=== PATIENT | female | born 1970 | race Caucasian/White ===

== ENCOUNTER 2021-09-17 19:29 | Emergency (ER) | payer SELFPAY ==
[~2021-09-17] VITALS: Ht 162.6 cm; Wt 80.0 kg
--- NOTE | 2021-09-17 19:46 | PHYS DOC ---
General Adult HPI: HPI: Patient is a 50 year old female presents with a chief complaint of chest discomfort. Patient's chest discomfort is midsternal started yesterday approximately 1500 hrs. and lasted until approximately 1800 hrs. At that time patient states pain did not radiate she did rated the pain a 10 out of 10 and described as a dull type of pain. She denied any associated nausea vomiting or diaphoresis. Patient did states she has some associated shortness of breath. Again patient states pain resolved yesterday at 1800 hrs. Patient's pain returned today. Patient states today pain is substernal comes and goes and described as a burning and throbbing sensation. Again she denies any associated nausea vomiting or diaphoresis but does states she has some shortness of breath. Patient also complains of pain in her right ankle. Patient has had previous surgeries right ankle related to an injury. Patient states her right lower extremity feels numb and swollen. Patient is currently on antibiotics was seen 2 to 3 days ago at outside facility for the chief complaint of foul-smelling urine. On exam patient is alert and oriented x4. She appears in no acute distress her vital signs are stable. EKG performed shows no acute ischemic changes Review of Systems: Review of Systems: Review of systems: Constitutional symptoms- No fever, no chills. Eyes- No Discharge, No Visual Loss Respiratory symptoms- No shortness of breath, No wheezing, No Dyspnea on Exertion Cardiovascular Systems; No chest pain, No Palpitations, No syncope Gastrointestinal symptoms: NO abdominal pain, no nausea, no vomiting or diarrhea. Genitourinary symptoms: No dysuria. Musculoskeletal symptoms: No back pain No extremity pain. NEUROLOGICAL Symptoms: No headache, no generalized weakness; No focal Weakness Skin: No rash. Heart Score: C/O Chest Pain: Yes HEART Score for Chest Pain: HEART Score for Chest Pain Response (Comments) Value History Slighlty/Non-Suspicious 0 ECG Normal 0 Age >45 - < 65 1 Risk Factors No Risk Factors 0 Troponin < Normal Limit 0 Total 1 Risk Factors: Risk Factors: DM, Current or recent (<one month) smoker, HTN, HLP, family history of CAD, obesity. Risk Scores: Score 0 - 3: 2.5% MACE over next 6 weeks - Discharge Home Score 4 - 6: 20.3% MACE over next 6 weeks - Admit for Clinical Observation Score 7 - 10: 72.7% MACE over next 6 weeks - Early Invasive Strategies Physical Exam: PE: General: alert, no acute distress. Skin: warm, dry and intact, no erythema, no rash. HENT: bilateral external ears normal, oropharynx moist, nose normal. Head:: Normocephalic, atraumatic. Neck: Trachea midline. Eyes: EOMI, Normal conjunctiva, No drainage CARDIOVASCULAR: Regular rate and rhythm RESPIRATORY: No respiratory distress Back: Full range of motion. MUSCULOSKELETAL: Full range of motion of bilateral upper and lower extremities. GASTROINTESTINAL: Abdomen soft without rebound or guarding. NEUROLOGICAL: Alert and noted to person, place and time. No neurological deficits observed Psychiatric: Cooperative. Normal judgment EKG: EKG: [] Performed at 1939 Rate 98 Normal sinus rhythm No ST elevation No ST depression No acute UT Radiology/Procedures: Radiology/Procedures: [] Impression: MPRESSION: Left greater than right bibasilar opacities. Course & Med Decision Making: Course & Med Decision Making Pertinent Labs and Imaging studies reviewed. (See chart for details) [] Patient was evaluated for chief complaint. Work-up consisted of laboratory analysis Joy Disclaimer: Joy Disclaimer: This electronic medical record was generated, in whole or in part, using a voice recognition dictation system. Departure Departure Impression: Primary Impression: Pneumonia Additional Impression: Hypokalemia Disposition: 01 HOME / SELF CARE / HOMELESS Condition: STABLE Patient Instructions: Hypokalemia, Pneumonia, Adult Scripts Potassium Chloride (POTASSIUM CHLORIDE ) 20 Meq Tablet.er 20 MEQ PO DAILY for SUPPLEMENT, #10 TAB.SR Prov: MEHNAZ MARCIAL DO 09/17/21 Azithromycin (ZITHROMAX) 250 Mg Tablet 1 PKG PO UD, #6 TAB Prov: MEHNAZ MARCIAL DO 09/17/21 MEHNAZ MARCIAL DO Sep 17, 2021 19:45
[2021-09-17 20:16] LABS: BASO # 0.1 x10^3/uL (0.0-0.2); BASO % 1 % (0-3); EOS # 0.3 x10^3/uL (0.0-0.7); EOS % 3 % (0-3); HEMATOCRIT 42.8 % (36.0-47.0); HEMOGLOBIN 14.5 g/dL (12.0-15.5); LYMPH # 2.4 x10^3/uL (1.0-4.8); LYMPH % 23 % (24-48); MEAN CORPUSCULAR HEMOGLOBIN 32 pg (25-35); MEAN CORPUSCULAR HGB CONC 34 g/dL (31-37); MEAN CORPUSCULAR VOLUME 93 fL (79-100); MONO # 0.8 x10^3/uL (0.0-1.1); MONO % 7 % (0-9); NEUT # 7.1 x10^3/uL (1.8-7.7); NEUT % 67 % (31-73); PLATELET COUNT 373 x10^3/uL (140-400); RED BLOOD COUNT 4.58 x10^6/uL (3.50-5.40); RED CELL DISTRIBUTION WIDTH 13.8 % (11.5-14.5); WHITE BLOOD COUNT 10.7 x10^3/uL (4.0-11.0)
--- NOTE | 2021-09-17 20:25 | RAD ---
EXAMINATION: XR CHEST 1V CLINICAL HISTORY: Chest pain EXAM DATE/TIME: 09/17/2021 8:07 PM COMPARISON: None FINDINGS: Lines, Tubes, and Devices: None. Cardiomediastinal Silhouette: Within normal limits. Lungs and Pleura: Mild opacities in the lateral lung bases, greater on the left. No evidence of pleur al effusion or pneumothorax. Bones and Soft Tissues: Degenerative changes in the thoracic spine. IMPRESSION: Left greater than right bibasilar opacities. Electronically signed by: Abel Hanna DO (09/17/2021 8:23 PM) [id number]
[2021-09-17 20:28] LABS: CALCIUM 9.1 mg/dL (8.5-10.1); CREATININE 0.9 mg/dL (0.6-1.0)
[2021-09-17 20:35] LABS: TOTAL BILIRUBIN 0.4 mg/dL (0.2-1.0); TOTAL PROTEIN 7.9 g/dL (6.4-8.2)
[2021-09-17] MEDS ORDERED: cefTRIAXone IM 1 GM VIAL IM ONE (21:00)
[2021-09-17] MEDS ORDERED: POTASSIUM CHLORIDE 20 MEQ TABLET.ER. PO ONE (21:00)
[2021-09-17] MEDS ORDERED: AZITHROMYCIN 250 MG TABLET. PO ONE (21:00)
[2021-09-17] MEDS ORDERED: AZIT250T PO (21:01)
[2021-09-17] MEDS ORDERED: POTA20TA4 PO (21:02)
[2021-09-17 21:32] VITALS: BP 174/108
--- NOTE | 2021-09-17 22:23 | EKG ---
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
== END 2021-09-17 21:26 | disposition home or self-care (01) ==
LOC: ER 19:29
DX: J18.9 Pneumonia, unspecified organism (principal); E87.6 Hypokalemia; M25.571 Pain in right ankle and joints of right foot
CPT/HCPCS: 36415; 71045; 80053; 84484; 85025; 85379; 93005; 96372; 99285; J0696

== ENCOUNTER 2021-09-21 12:05 | Emergency (ER) | payer SELFPAY ==
[~2021-09-21] VITALS: Ht 162.6 cm; Wt 84.2 kg
[~2021-09-21 12:05] MED LIST: AZIT250T PO; POTA20TA4 PO
[2021-09-21] MEDS ORDERED: IV NORMAL SALINE 1000ML BAG 1,000 ML IV SCH (13:15)
--- NOTE | 2021-09-21 13:28 | RAD ---
XR CHEST 1V 09/21/2021 1:22 PM INDICATION: Chest pain, history of pneumonia COMPARISON: 09/17/2021 TECHNIQUE: Portable frontal view of the chest is provided. FINDINGS: The cardiomediastinal silhouette is within normal limits. Improved aeration of the lung bases. Lungs are otherwise clear. There are no significant pleural effusions. There is no pulmonary vascular congestion. No pneumothora x. No suspicious osseous abnormality. IMPRESSION: There is no acute cardiopulmonary process. Electronically signed by: Rosie Pandya MD (09/21/2021 1:25 PM) [id number]
[2021-09-21] MEDS ORDERED: fentaNYL PF VIAL 100 MCG/2 ML VIAL IVP ONE (13:30)
[2021-09-21 13:33] LABS: BILIRUBIN,URINE NEGATIVE (NEG); CLARITY,URINE CLEAR; COLOR,URINE YELLOW; NITRITE,URINE NEGATIVE (NEG); PH,URINE 5.5 (<5.0-8.0); PROTEIN,URINE NEGATIVE (NEG-TRACE); UROBILINOGEN,URINE 0.2 mg/dL (0.2 mg/dL)
[2021-09-21 13:39] LABS: BACTERIA,URINE MANY /HPF (0-FEW); RBC,URINE 0 /HPF (0-2)
--- NOTE | 2021-09-21 13:43 | PHYS DOC ---
Past Medical History Past Surgical History: Hysterectomy, Other Additional Past Surgical Histo: RIGHT ANKLE, RIGHT JAW Smoking Status: Never Smoker Alcohol Use: Occasionally General Adult EDM: Chief Complaint: DIZZY/LIGHT HEADED HPI: HPI: Patient is a 50 year old female who presents with was here 4 days ago and diagnosed with pneumonia and hypokalemia. She was sent home on azithromycin and potassium. She states since then she is weak and fatigued and has not been getting out of bed and when she went to get up today she is very dizzy. She states she has been taking her medications as prescribed. She states she still having numbness and tingling in her hands and feet. She states that she has been taking antibiotic but she is still having chest pain with breathing and intermittent shortness of breath. Patient rates her pain at a 6 out of 10. Patient has a history of hysterectomy, right ankle surgery and right jaw surgery. Review of Systems: Review of Systems: Constitutional: Denies fever or chills. [] Eyes: Denies change in visual acuity. [] HENT: Denies nasal congestion or sore throat. [] Respiratory: +cough or +shortness of breath. [] Cardiovascular: + chest pain or denies edema. [] GI: Denies abdominal pain, nausea, vomiting, bloody stools or diarrhea. [] : Denies dysuria. [] Musculoskeletal: Denies back pain or joint pain. + Generalized fatigue [] Integument: Denies rash. [] Neurologic: Denies headache, focal weakness or sensory changes. + Dizziness [] Endocrine: Denies polyuria or polydipsia. [] Lymphatic: Denies swollen glands. [] Psychiatric: Denies depression or anxiety. [] Heart Score: C/O Chest Pain: Yes HEART Score for Chest Pain: HEART Score for Chest Pain Response (Comments) Value History Slighlty/Non-Suspicious 0 ECG Nonspecific Repolarizatio 1 Age >45 - < 65 1 Risk Factors No Risk Factors 0 Troponin < Normal Limit 0 Total 2 Risk Factors: Risk Factors: DM, Current or recent (<one month) smoker, HTN, HLP, family history of CAD, obesity. Risk Scores: Score 0 - 3: 2.5% MACE over next 6 weeks - Discharge Home Score 4 - 6: 20.3% MACE over next 6 weeks - Admit for Clinical Observation Score 7 - 10: 72.7% MACE over next 6 weeks - Early Invasive Strategies Current Medications: Current Medications Medications (Trade) Dose Ordered Sig/Genna Start Time Stop Time Status Last Admin Dose Admin Fentanyl Citrate (Fentanyl 2ml Vial) 50 mcg 1X ONCE 09/21/21 13:30 09/21/21 13:31 DC Sodium Chloride 1,000 ml @ 1,000 mls/hr Q1H 09/21/21 13:15 09/21/21 14:14 Allergies: Allergies: Allergies Coded Allergies Type Severity Reaction Last Updated Verified No Known Drug Allergies 09/21/21 No Physical Exam: PE: Constitutional: Well developed, well nourished, no acute distress, non-toxic a ppearance. [] HENT: Normocephalic, atraumatic, bilateral external ears normal, oropharynx moist, no oral exudates, nose normal. [] Eyes: PERRLA, EOMI, conjunctiva normal, no discharge. [] Neck: Normal range of motion, no tenderness, supple, no stridor. [] Cardiovascular:Heart rate regular rhythm, no murmur [] Lungs & Thorax: Bilateral upper breath sounds clear lower diminished to auscultation [] Abdomen: Bowel sounds normal, soft, no tenderness, no masses, no pulsatile masses. [] Skin: Warm, dry, no erythema, no rash. [] Back: No tenderness, no CVA tenderness. [] Extremities: No tenderness, no cyanosis, no clubbing, ROM intact, no edema. [] Neurologic: Alert and oriented X 3, normal motor function, normal sensory function, no focal deficits noted. [] Psychologic: Affect normal, judgement normal, mood normal. [] EKG: EK and read by Dr. Hunt as sinus rhythm but no STEMI. Radiology/Procedures: Radiology/Procedures: [] Impression: [facility] [address] [place] [address] IMAGING REPORT Signed PATIENT: MIC CANCHOLA I ACCOUNT: [id number] : 1970 LOCATION: ER AGE: 50 SEX: F EXAM STATUS: PRE ER ORD. PHYSICIAN: XIANG BOWIE APRN REASON: CHEST PAIN, HX PNEUMONIA PROCEDURE: PORTABLE CHEST 1V XR CHEST 1V 09/21/2021 1:22 PM INDICATION: Chest pain, history of pneumonia COMPARISON: 09/17/2021 TECHNIQUE: Portable frontal view of the chest is provided. FINDINGS: The cardiomediastinal silhouette is within normal limits. Improved aeration of the lung bases. Lungs are otherwise clear. There are no significant pleural effusions. There is no pulmonary vascular congestion. No pneumothorax. No suspicious osseous abnormality. IMPRESSION: There is no acute cardiopulmonary process. Electronically signed by: Rosie Lynch MD (09/21/2021 1:25 PM) [id number] DICTATED and SIGNED BY: ROSIE LYNCH MD DATE: 09/21/21 [id number] 0 [facility] [address] [place] [address] IMAGING REPORT Signed PATIENT: MIC CANCHOLA I ACCOUNT: [id number] : 1970 LOCATION: ER AGE: 50 SEX: F EXAM STATUS: PRE ER ORD. PHYSICIAN: XIANG BOWIE APRN REASON: DIZZINESS PROCEDURE: CT HEAD WO CONTRAST PQRS Compliance Statement: One or more of the following individualized dose reduction techniques were utilized for this examination: 1. Automated exposure control 2. Adjustment of the mA and/or kV according to patient size 3. Use of iterative reconstruction technique CT head without contrast 09/21/2021 2:13 PM INDICATION: Dizziness COMPARISON: None available TECHNIQUE: Multiple axial CT images of the head were obtained from skull base t hrough the vertex without intravenous contrast. FINDINGS: Head: Ventricles, sulci and basal cisterns are within normal limits. There is no hydrocephalus. Carias-white matter differentiation is normal. There is no acute intracranial hemorrhage. There is no mass, mass effect or midline shift. Posterior fossa is normal in appearance. Visualized portions of the orbits are normal. Mild mucosal thickening of the ethmoid air cells. Mastoid air cells are well aerated. Scalp and calvaria are normal. Right mandibular postoperative changes are noted. IMPRESSION: No acute intracranial hemorrhage. Electronically signed by: Rosie Lynch MD (09/21/2021 2:43 PM) [id number] DICTATED and SIGNED BY: ROSIE LYNCH MD DATE: 09/21/21 [id number] 0 [facility] [address] [place] [address] IMAGING REPORT Signed PATIENT: MIC CANCHOLA I ACCOUNT: [id number] : 1970 LOCATION: ER AGE: 50 SEX: F EXAM STATUS: PRE ER ORD. PHYSICIAN: XIANG BOWIE APRN REASON: INCREASE CHEST PAIN, SOA, RECENTLY DIAGNOSED WITH PNEUMONIA PROCEDURE: CT ANGIOGRAPHY CHEST PQRS Compliance Statement: One or more of the following individualized dose reduction techniques were utilized for this examination: 1. Automated exposure control 2. Adjustment of the mA and/or kV according to patient size 3. Use of iterative reconstruction technique CTA CHEST 09/21/2021 2:13 PM INDICATION: Increased chest pain. COMPARISON: None available TECHNIQUE: Axial CT images of the chest were obtained after the intravenous administration of nonionic contrast. Coronal and sagittal reformats are provided. Maximum intensity projection images of the thoracic vasculature are provided. FINDINGS: The thyroid gland is normal in appearance. There are no pathologically enlarged axillary, mediastinal or hilar lymph nodes. The heart size is within normal limits. No significant pericardial effusion. Thoracic aorta is normal in course and caliber. Bilateral breast prosthesis. There may be extracapsular rupture on the right. There is adequate opacification of the pulmonary arterial system. There there are no filling defects within the pulmonary arterial system to suggest acute or chronic pulmonary embolus. There are no suspicious solid noncalcified pulmonary nodules. There are no pulmonary infiltrates. There are no pleural effusions. No pulmonary vascular congestion or pneumothorax. Visualized portions of the upper abdomen are within normal limits. No suspicious osseous lesions are visualized. IMPRESSION: There is no evidence for acute or chronic pulmonary embolism. No residual airspace consolidation is identified. Minimal dependent atelectasis at the right lung base. Bilateral breast prosthesis with possible extracapsular rupture on the right. Electronically signed by: Rosie Lynch MD (09/21/2021 2:51 PM) [id number] DICTATED and SIGNED BY: ROSIE LYNCH MD DATE: 09/21/21 [id number] 0 Course & Med Decision Making: Course & Med Decision Making Pertinent Labs and Imaging studies reviewed. (See chart for details) COVID-19 CRITERIA: The patient was evaluated during the global COVID-19 pandemic, and that diagnosis was suspected/considered upon their initial presentation. Their evaluation, treatment and testing was consistent with current guidelines for patients who present with complaints or symptoms that may be related to COVID-19. See HPI. Alert and oriented x4. Ambulatory to steady gait. Speaks in full clear sentences. Lungs are clear in upper lobes but diminished in lower lobes bilaterally. Skin pink warm and dry. Blood work unremarkable. She is given fluids. CT angio chest chest x-ray showed no acute findings. Electrolytes are normal. Orthostatics are normal. Rapid Covid is negative. Patient had stated that her stool was dark. Patient then told me she has been taking some Pepto-Bismol. This is likely the cause. She denies seeing any kind of blood in her stool or in the toilet. She denies abdominal pain, nausea or vomiting. Chest pain seems to be musculoskeletal as it is with movement. Patient to finish antibiotic and follow-up with her primary care physician. [] Joy Disclaimer: Joy Disclaimer: This electronic medical record was generated, in whole or in part, using a voice recognition dictation system. Departure Departure Impression: Primary Impression: Tingling of both upper extremities Additional Impressions: Numbness and tingling of both lower extremities Chest wall pain Disposition: 01 HOME / SELF CARE / HOMELESS Condition: STABLE Referrals: NO PCP (PCP) Patient Instructions: Chest Wall Pain, Paresthesia Additional Instructions: Finish your medications. Must follow-up with a primary care physician as soon as possible. Drink plenty of fluids. If you begin having severe chest pain that cannot be relieved and shortness of breath return to the emergency room. XIANG BOWIE COMPLIANCE REVIEWER Sep 21, 2021 13:43
[2021-09-21 13:55] LABS: CALCIUM 8.8 mg/dL (8.5-10.1); CREATININE 0.9 mg/dL (0.6-1.0); POTASSIUM 4.2 mmol/L (3.5-5.1)
[2021-09-21 14:01] LABS: ALBUMIN 3.5 g/dL (3.4-5.0); ALBUMIN/GLOBULIN RATIO 0.9 (1.0-1.7); MAGNESIUM 1.9 mg/dL (1.8-2.4); TOTAL BILIRUBIN 0.2 mg/dL (0.2-1.0); TOTAL PROTEIN 7.3 g/dL (6.4-8.2)
[2021-09-21] MEDS ORDERED: IOHEXOL 350 MG/ML 100 ML VIAL. IV ONE (14:15)
[2021-09-21] MEDS ORDERED: CONTRAST GIVEN. MC PRN (14:30)
--- NOTE | 2021-09-21 14:45 | RAD ---
PQRS Compliance Statement: One or more of the following individualized dose reduction techniques were utilized for this examinat ion: 1. Automated exposure control 2. Adjustment of the mA and/or kV according to patient size 3. Use of iterative reconstruction technique CT head without contrast 09/21/2021 2:13 PM INDICATION: Dizziness COMPARISON: None available TECHNIQUE: Multiple axial CT images of the head were obtained from skull base through the vertex with out intravenous contrast. FINDINGS: Head: Ventricles, sulci and basal cisterns are within normal limits. There is no hydrocephalus. Carias-white matter differentiation is normal. There is no acute intracranial hemorrhage. There is no mass, mass e ffect or midline shift. Posterior fossa is normal in appearance. Visualized portions of the orbits are normal. Mild mucosal thickening of the ethmoid air cells. Masto id air cells are well aerated. Scalp and calvaria are normal. Right mandibular postoperative changes are noted. IMPRESSION: No acute intracranial hemorrhage. Electronically signed by: Rosie Pandya MD (09/21/2021 2:43 PM) [id number]
--- NOTE | 2021-09-21 14:54 | RAD ---
PQRS Compliance Statement: One or more of the following individualized dose reduction techniques were utilized for this examinat ion: 1. Automated exposure control 2. Adjustment of the mA and/or kV according to patient size 3. Use of iterative reconstruction technique CTA CHEST 09/21/2021 2:13 PM INDICATION: Increased chest pain. COMPARISON: None available TECHNIQUE: Axial CT images of the chest were obtained after the intravenous administration of nonioni c contrast. Coronal and sagittal reformats are provided. Maximum intensity projection images of the t horacic vasculature are provided. FINDINGS: The thyroid gland is normal in appearance. There are no pathologically enlarged axillary, mediastinal or hilar lymph nodes. The heart size is within normal limits. No significant pericardial effusion. T horacic aorta is normal in course and caliber. Bilateral breast prosthesis. There may be extracapsula r rupture on the right. There is adequate opacification of the pulmonary arterial system. There there are no filling defects within the pulmonary arterial system to suggest acute or chronic pulmonary embolus. There are no suspicious solid noncalcified pulmonary nodules. There are no pulmonary infiltrates. The re are no pleural effusions. No pulmonary vascular congestion or pneumothorax. Visualized portions of the upper abdomen are within normal limits. No suspicious osseous lesions are visualized. IMPRESSION: There is no evidence for acute or chronic pulmonary embolism. No residual airspace consolidation is i dentified. Minimal dependent atelectasis at the right lung base. Bilateral breast prosthesis with possible extracapsular rupture on the right. Electronically signed by: Rosie Pandya MD (09/21/2021 2:51 PM) [id number]
[2021-09-21 15:13] LABS: BASO # 0.1 x10^3/uL (0.0-0.2); BASO % 1 % (0-3); EOS # 0.3 x10^3/uL (0.0-0.7); EOS % 2 % (0-3); HEMATOCRIT 41.1 % (36.0-47.0); HEMOGLOBIN 13.9 g/dL (12.0-15.5); LYMPH # 1.6 x10^3/uL (1.0-4.8); LYMPH % 14 % (24-48); MEAN CORPUSCULAR HEMOGLOBIN 32 pg (25-35); MEAN CORPUSCULAR HGB CONC 34 g/dL (31-37); MEAN CORPUSCULAR VOLUME 94 fL (79-100); MONO # 0.5 x10^3/uL (0.0-1.1); MONO % 4 % (0-9); NEUT # 9.1 x10^3/uL (1.8-7.7); NEUT % 79 % (31-73); PLATELET COUNT 388 x10^3/uL (140-400); RED BLOOD COUNT 4.38 x10^6/uL (3.50-5.40); RED CELL DISTRIBUTION WIDTH 13.2 % (11.5-14.5); WHITE BLOOD COUNT 11.5 x10^3/uL (4.0-11.0)
[2021-09-21 15:35] VITALS: BP 144/84
--- NOTE | 2021-09-21 15:44 | EKG ---
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
--- NOTE | 2021-09-22 15:33 | NUR ---
IP: Attempted to contact pt concerning covid results. No answer, left a voicemail to return the call.
--- NOTE | 2021-09-23 09:56 | NUR ---
IP: Pt returned call. Informed her of the negative covid results. Pt verbalized understanding.
== END 2021-09-21 15:45 | disposition home or self-care (01) ==
LOC: ER 12:05
DX: Z20.822 Contact with and (suspected) exposure to COVID-19 (principal); R07.89 Other chest pain; R20.2 Paresthesia of skin; R06.02 Shortness of breath; E87.6 Hypokalemia
CPT/HCPCS: 36415; 70450; 71045; 71275; 80053; 81001; 83605; 83735; 83880; 84484; 85025; 87086; 87426; 93005; 96361; 96374; 99285; J3010; J7030; Q9967; U0003; U0005

== ENCOUNTER 2021-09-28 12:38 | Emergency (ER) | payer SELFPAY ==
[~2021-09-28] VITALS: Ht 162.6 cm; Wt 83.6 kg
[2021-09-28 14:28] LABS: BILIRUBIN,URINE NEGATIVE (NEG); CLARITY,URINE CLEAR; COLOR,URINE YELLOW; NITRITE,URINE NEGATIVE (NEG); PH,URINE 5.5 (<5.0-8.0); PROTEIN,URINE NEGATIVE (NEG-TRACE); UROBILINOGEN,URINE 0.2 mg/dL (0.2 mg/dL)
--- NOTE | 2021-09-28 14:29 | PHYS DOC ---
Past Medical History Past Surgical History: Hysterectomy, Other Additional Past Surgical Histo: RIGHT ANKLE, RIGHT JAW Smoking Status: Never Smoker Alcohol Use: None General Adult EDM: Chief Complaint: ABDOMINAL PAIN HPI: HPI: Patient is a 50 year old female who presents with yesterday she had some diarrhea has now subsided but she is having low mid abdominal pain more so with movement. She states she just got over a urinary tract infection. She denies nausea, vomiting, diarrhea today, shortness of breath, chest pain, headache, dizziness, fever, body aches, chills. Rates her pain at a 5 out of 10. She states it changes in quality. It does not radiate. Review of Systems: Review of Systems: Constitutional: Denies fever or chills. [] Eyes: Denies change in visual acuity. [] HENT: Denies nasal congestion or sore throat. [] Respiratory: Denies cough or shortness of breath. [] Cardiovascular: Denies chest pain or edema. [] GI: + Low mid abdominal pain, denies nausea, vomiting, bloody stools or +diarrhea yesterday. [] : Denies dysuria. [] Musculoskeletal: Denies back pain or joint pain. [] Integument: Denies rash. [] Neurologic: Denies headache, focal weakness or sensory changes. [] Endocrine: Denies polyuria or polydipsia. [] Lymphatic: Denies swollen glands. [] Psychiatric: Denies depression or anxiety. [] Heart Score: C/O Chest Pain: No Allergies: Allergies: Allergies Coded Allergies Type Severity Reaction Last Updated Verified No Known Drug Allergies 09/21/21 No Physical Exam: PE: Constitutional: Well developed, well nourished, no acute distress, non-toxic appearance. [] HENT: Normocephalic, atraumatic, bilateral external ears normal, oropharynx moist, no oral exudates, nose normal. [] Eyes: PERRLA, EOMI, conjunctiva normal, no discharge. [] Neck: Normal range of motion, no tenderness, supple, no stridor. [] Cardiovascular:Heart rate regular rhythm, no murmur [] Lungs & Thorax: Bilateral breath sounds clear to auscultation [] Abdomen: Bowel sounds normal, soft, low mid tenderness, no masses, no pulsatile masses. [] Skin: Warm, dry, no erythema, no rash. [] Back: No tenderness, no CVA tenderness. [] Extremities: No tenderness, no cyanosis, no clubbing, ROM intact, no edema. [] Neurologic: Alert and oriented X 3, normal motor function, normal sensory function, no focal deficits noted. [] Psychologic: Affect normal, judgement normal, mood normal. [] EKG: EKG: [] Radiology/Procedures: Radiology/Procedures: [] Impression: [facility] [address] [place] [address] IMAGING REPORT Signed PATIENT: MIC CANCHOLA I ACCOUNT: [id number] : 1970 LOCATION: ER AGE: 50 SEX: F EXAM STATUS: REG ER ORD. PHYSICIAN: XIANG BOWIE APRN REASON: lower abd tenderness, diarrhea PROCEDURE: CT ABD PELV W/ IV CONTRST ONLY CT ABDOMEN+PELVIS W History: Reason: lower abd tenderness, diarrhea / Spl. Instructions: IV omni 300 60 mls / History: Technique: After the administration of intravenous contrast, CT imaging was performed of the abdomen and pelvis. Multiplanar images are reviewed. Exposure: One or more of the following individualized dose reduction techniques were utilized for this examination: 1. Automated exposure control 2. Adjustment of the mA and/or kV according to patient size 3. Use of iterative reconstruction technique. Comparison: None Findings: Lower chest: No consolidation or pleural effusion. Bilateral breast implants. Abdomen and pelvis: The liver, spleen, adrenal glands, pancreas and gallbladder are unremarkable. No biliary ductal dilatation. No hydronephrosis. No renal calculus. Decompressed urinary bladder. Colonic diverticulosis. Sigmoid colonic wall thickening. Inflamed diverticulum with mild adjacent inflammatory changes. No abscess. No pneumoperitoneum. Normal appendix. No evidence of bowel obstruction. No pathologic lymphadenopathy. No ascites. Prior hysterectomy. Mild atheromatous plaque throughout the nonaneurysmal abdominal aorta and branch vessels. Bones: Mild lumbar spondylosis. L2 superior endplate Schmorl's node. Impression: 1. Acute mild sigmoid diverticulitis. No abscess or perforation. Electronically signed by: Dami Perez DO (09/28/2021 4:17 PM) [facility] DICTATED and SIGNED BY: DAMI PEREZ DO DATE: 09/28/21 [id number] Course & Med Decision Making: Course & Med Decision Making Pertinent Labs and Imaging studies reviewed. (See chart for details) See HPI. Alert and oriented x4. Ambulatory steady gait. Speaks in full clear sentences. Abdomen is soft and patient states slightly tender with palpation to low mid abdomen. Skin pink warm and dry. Vital signs within normal limits. Afebrile. No CVA tenderness. Lungs are clear to all station all lobes. [] Dragon Disclaimer: Dragon Disclaimer: This electronic medical record was generated, in whole or in part, using a voice recognition dictation system. Departure Departure Impression: Primary Impression: Acute diverticulitis Disposition: HOME / SELF CARE / HOMELESS Condition: STABLE Referrals: NO PCP (PCP) ALBERTO CHE MD Patient Instructions: Diverticulitis Additional Instructions: Follow up with GI doctor as soon as possible. Take medication as prescribed and with food. Drink plenty of fluids to stay hydrated. If you begin to not be able to keep down fluids, have bloody stools or severe abdominal pain with a fever return to the ED. Follow a clear liquid diet and slowly advance as pain lessens. Scripts Hydrocodone Bit/Acetaminophen (HYDROCODONE-APAP 5-325 ) 1 Tab Tablet 1 TAB PO PRN Q6HRS PRN for PAIN, #15 TAB 0 Refills Prov: XIANG BOWIE [employer] 09/28/21 Amoxicillin/Potassium Clav (AUGMENTIN 875-125 TABLET) 1 Each Tablet 1 TAB PO BID for 10 Days, #20 TAB 0 Refills Prov: XIANG BOWIE [employer] 09/28/21 XIANG BOWIE [employer] Sep 28, 2021 14:29
[2021-09-28 14:56] LABS: RBC,URINE 0 /HPF (0-2); WBC,URINE OCC /HPF (0-4)
[2021-09-28 14:57] LABS: BACTERIA,URINE FEW /HPF (0-FEW)
[2021-09-28 15:06] LABS: BASO # 0.1 x10^3/uL (0.0-0.2); BASO % 1 % (0-3); EOS # 0.4 x10^3/uL (0.0-0.7); EOS % 3 % (0-3); HEMATOCRIT 39.4 % (36.0-47.0); HEMOGLOBIN 13.2 g/dL (12.0-15.5); LYMPH # 2.2 x10^3/uL (1.0-4.8); LYMPH % 19 % (24-48); MEAN CORPUSCULAR HEMOGLOBIN 32 pg (25-35); MEAN CORPUSCULAR HGB CONC 34 g/dL (31-37); MEAN CORPUSCULAR VOLUME 94 fL (79-100); MONO # 0.8 x10^3/uL (0.0-1.1); MONO % 7 % (0-9); NEUT # 7.8 x10^3/uL (1.8-7.7); NEUT % 70 % (31-73); PLATELET COUNT 322 x10^3/uL (140-400); RED CELL DISTRIBUTION WIDTH 13.2 % (11.5-14.5); WHITE BLOOD COUNT 11.2 x10^3/uL (4.0-11.0)
[2021-09-28 15:15] LABS: CALCIUM 8.4 mg/dL (8.5-10.1); GFR 58.5; POTASSIUM 3.7 mmol/L (3.5-5.1)
[2021-09-28] MEDS ORDERED: KETOROLAC 15 MG/ML VIAL. IVP ONE (15:15)
[2021-09-28] MEDS ORDERED: IV NORMAL SALINE 1000ML BAG 1,000 ML IV ONE (15:15)
[2021-09-28 15:21] LABS: ALBUMIN 3.3 g/dL (3.4-5.0); ALBUMIN/GLOBULIN RATIO 0.9 (1.0-1.7); TOTAL BILIRUBIN 0.2 mg/dL (0.2-1.0)
[2021-09-28] MEDS ORDERED: CONTRAST GIVEN. MC PRN (15:45)
[2021-09-28] MEDS ORDERED: IOHEXOL 300 MG/ML 100ML VIAL. IV ONE (15:45)
--- NOTE | 2021-09-28 16:19 | RAD ---
CT ABDOMEN+PELVIS W History: Reason: lower abd tenderness, diarrhea / Spl. Instructions: IV omni 300 60 mls / History: Technique: After the administration of intravenous contrast, CT imaging was performed of the abdomen and pelvis. Multiplanar images are reviewed. Exposure: One or more of the following individualized dose reduction techniques were utilized for thi s examination: 1. Automated exposure control 2. Adjustment of the mA and/or kV according to patient size 3. Use of iterative reconstruction technique. Comparison: None Findings: Lower chest: No consolidation or pleural effusion. Bilateral breast implants. Abdomen and pelvis: The liver, spleen, adrenal glands, pancreas and gallbladder are unremarkable. No biliary ductal dilatation. No hydronephrosis. No renal calculus. Decompressed urinary bladder. Colonic diverticulosis. Sigmoid colonic wall thickening. Inflamed diverticulum with mild adjacent inf lammatory changes. No abscess. No pneumoperitoneum. Normal appendix. No evidence of bowel obstruction . No pathologic lymphadenopathy. No ascites. Prior hysterectomy. Mild atheromatous plaque throughout the nonaneurysmal abdominal aorta and branch vessels. Bones: Mild lumbar spondylosis. L2 superior endplate Schmorl's node. Impression: 1. Acute mild sigmoid diverticulitis. No abscess or perforation. Electronically signed by: Dami Perez DO (09/28/2021 4:17 PM) [facility]
[2021-09-28 16:25] VITALS: BP 125/80
[2021-09-28] MEDS ORDERED: HYDR-2761 PO (16:28)
[2021-09-28] MEDS ORDERED: AMOX1TAB61 PO (16:28)
== END 2021-09-28 16:42 | disposition home or self-care (01) ==
LOC: ER 12:38
DX: K57.92 Diverticulitis of intestine, part unspecified, without perforation or abscess without bleeding (principal); Z90.710 Acquired absence of both cervix and uterus
CPT/HCPCS: 36415; 74177; 80053; 81001; 83735; 85025; 96361; 96374; 99285; J1885; J7030; Q9967

== ENCOUNTER 2021-11-09 20:10 | Observation (INO) | payer SELFPAY ==
[~2021-11-09] VITALS: Ht 162.6 cm; Wt 81.8 kg
[~2021-11-09 20:10] MED LIST changes: +AMOX1TAB61 PO; +HYDR-2761 PO
[2021-11-09] MEDS ORDERED: ASPIRIN CHEWABLE 81 MG TABLET. PO ONE (20:30)
[2021-11-09 20:51] LABS: BASO # 0.1 x10^3/uL (0.0-0.2); BASO % 1 % (0-3); EOS # 0.5 x10^3/uL (0.0-0.7); EOS % 5 % (0-3); HEMATOCRIT 43.8 % (36.0-47.0); HEMOGLOBIN 15.2 g/dL (12.0-15.5); LYMPH # 3.2 x10^3/uL (1.0-4.8); LYMPH % 30 % (24-48); MEAN CORPUSCULAR HEMOGLOBIN 33 pg (25-35); MEAN CORPUSCULAR HGB CONC 35 g/dL (31-37); MEAN CORPUSCULAR VOLUME 94 fL (79-100); MONO # 0.8 x10^3/uL (0.0-1.1); MONO % 7 % (0-9); NEUT # 6.3 x10^3/uL (1.8-7.7); NEUT % 58 % (31-73); PLATELET COUNT 397 x10^3/uL (140-400); RED BLOOD COUNT 4.65 x10^6/uL (3.50-5.40); RED CELL DISTRIBUTION WIDTH 13.7 % (11.5-14.5); WHITE BLOOD COUNT 10.9 x10^3/uL (4.0-11.0)
[2021-11-09 20:57] LABS: CALCIUM 8.3 mg/dL (8.5-10.1); GFR 58.5; POTASSIUM 3.6 mmol/L (3.5-5.1)
[2021-11-09 21:03] LABS: ALBUMIN 3.2 g/dL (3.4-5.0); ALBUMIN/GLOBULIN RATIO 0.9 (1.0-1.7); TOTAL BILIRUBIN 0.2 mg/dL (0.2-1.0); TOTAL PROTEIN 6.8 g/dL (6.4-8.2)
--- NOTE | 2021-11-09 21:14 | RAD ---
EXAM: XR CHEST 1V 11/09/2021 8:33 PM CLINICAL INDICATION: Chest COMPARISON: Chest radiograph 09/13/[address] chest 09/13/2021 TECHNIQUE: AP upright view of the chest FINDINGS: The heart and mediastinum are normal. Lungs are well-expanded. No consolidation, pleural effusion, or pneumothorax. Pulmonary vascularity is normal. The thoracic skeleton is intact. IMPRESSION: No acute cardiopulmonary abnormality. Electronically signed by: Loan Sanchez MD (11/09/2021 9:12 PM) [id number]
--- NOTE | 2021-11-09 21:34 | PHYS DOC ---
Past Medical History Past Surgical History: Hysterectomy, Other Additional Past Surgical Histo: RIGHT ANKLE, RIGHT JAW Smoking Status: Never Smoker Alcohol Use: None General Adult EDM: Chief Complaint: CHEST PAIN HPI: HPI: Patient is a 50 year old female with history of HTN, HLD, obesity, tobacco abuse who presents with chest pain and shortness of breath. Patient states she has had approximately 3 days of symptoms. Started with substernal chest pain. Described as burning/twinge. Is worse when she was exerting herself loading materials into boxes, and improved with rest. Today the pain has been present even at rest, but reliably gets worse with even minimal exertion such as walking. Associated with shortness of breath. States that she had subjective fever and chills, but denies cough, sore throat, conges tion. Denies COVID or sick contacts. Denies lower extremity swelling or recent surgeries/immobilization. Review of Systems: Review of Systems: Constitutional: Reports subjective fever and chills] Eyes: Denies change in visual acuity. [] HENT: Denies nasal congestion or sore throat. [] Respiratory: Reports exertional shortness of breath Cardiovascular: Reports exertional chest pain. Denies lower extremity edema. GI: Denies abdominal pain, nausea, vomiting, bloody stools or diarrhea. [] : Denies dysuria. [] Musculoskeletal: Denies back pain or joint pain. [] Integument: Denies rash. [] Neurologic: Denies headache, focal weakness or sensory changes. [] Psychiatric: Denies depression or anxiety. [] Heart Score: C/O Chest Pain: Yes HEART Score for Chest Pain: HEART Score for Chest Pain Response (Comments) Value History Highly Suspicious 2 ECG Normal 0 Age >45 - < 65 1 Risk Factors >3 Risk Factors or Hx CAD 2 Troponin < Normal Limit 0 Total 5 Risk Factors: Risk Factors: HTN, HLD, obesity, tobacco abuse Risk Scores: Score 4 - 6: 20.3% MACE over next 6 weeks - Admit for Clinical Observation Current Medications: Current Medications Medications (Trade) Dose Ordered Sig/Genna Start Time Stop Time Status Last Admin Dose Admin Aspirin (Aspirin Chewable) 324 mg 1X ONCE 11/09/21 20:30 11/09/21 20:39 DC 11/09/21 20:53 324 MG Allergies: Allergies: Allergies Coded Allergies Type Severity Reaction Last Updated Verified No Known Drug Allergies 09/28/21 No Physical Exam: PE: Constitutional: Well developed, well nourished, no acute distress, non-toxic appearance. [] Neck: Normal range of motion, no tenderness, supple, no stridor. [] Cardiovascular: Tachycardia. Regular rhythm Lungs & Thorax: Bilateral breath sounds clear to auscultation [] Abdomen: Bowel sounds normal, soft, no tenderness, no masses, no pulsatile masses. [] Skin: Warm, dry, no erythema, no rash. [] Back: No tenderness, no CVA tenderness. [] Extremities: No lower extremity erythema or edema Neurologic: Alert and oriented X 3, normal motor function, normal sensory function, no focal deficits noted. [] Psychologic: Affect normal, judgement normal, mood normal. [] Current Patient Data: Labs: Laboratory Tests Test 11/09/21 20:37 11/09/21 20:56 White Blood Count 10.9 x10^3/uL (4.0-11.0) Red Blood Count 4.65 x10^6/uL (3.50-5.40) Hemoglobin 15.2 g/dL (12.0-15.5) Hematocrit 43.8 % (36.0-47.0) Mean Corpuscular Volume 94 fL (79-100) Mean Corpuscular Hemoglobin 33 pg (25-35) Mean Corpuscular Hemoglobin Concent 35 g/dL (31-37) Red Cell Distribution Width 13.7 % (11.5-14.5) Platelet Count 397 x10^3/uL (140-400) Neutrophils (%) (Auto) 58 % (31-73) Lymphocytes (%) (Auto) 30 % (24-48) Monocytes (%) (Auto) 7 % (0-9) Eosinophils (%) (Auto) 5 % (0-3) H Basophils (%) (Auto) 1 % (0-3) Neutrophils # (Auto) 6.3 x10^3/uL (1.8-7.7) Lymphocytes # (Auto) 3.2 x10^3/uL (1.0-4.8) Monocytes # (Auto) 0.8 x10^3/uL (0.0-1.1) Eosinophils # (Auto) 0.5 x10^3/uL (0.0-0.7) Basophils # (Auto) 0.1 x10^3/uL (0.0-0.2) D-Dimer (Nyla) 0.77 ug/mlFEU (0.00-0.50) H Sodium Level 139 mmol/L (136-145) Potassium Level 3.6 mmol/L (3.5-5.1) Chloride Level 102 mmol/L (98-107) Carbon Dioxide Level 29 mmol/L (21-32) Anion Gap 8 (6-14) Blood Urea Nitrogen 12 mg/dL (7-20) Creatinine 1.0 mg/dL (0.6-1.0) Estimated GFR (Cockcroft-Gault) 58.5 BUN/Creatinine Ratio 12 (6-20) Glucose Level 81 mg/dL (70-99) Calcium Level 8.3 mg/dL (8.5-10.1) L Total Bilirubin 0.2 mg/dL (0.2-1.0) Aspartate Amino Transferase (AST) 15 U/L (15-37) Alanine Aminotransferase (ALT) 31 U/L (14-59) Alkaline Phosphatase 72 U/L (46-116) Troponin I High Sensitivity 6 ng/L (4-50) Total Protein 6.8 g/dL (6.4-8.2) Albumin 3.2 g/dL (3.4-5.0) L Albumin/Globulin Ratio 0.9 (1.0-1.7) L SARS-CoV-2 Antigen (Rapid) Negative (NEGATIVE) Laboratory Tests 11/09/21 20:37 Laboratory Tests 11/09/21 20:37 EKG: EKG: [] Sinus rhythm. Normal axis. Rate 105. Q deflection in lead III, without contiguous Q waves. No ST segment changes. Radiology/Procedures: Radiology/Procedures: [] Impression: [facility] [address] [place] [address] IMAGING REPORT Signed PATIENT: MIC CANCHOLA I ACCOUNT: [id number] : 1970 LOCATION: ER AGE: 50 SEX: F EXAM STATUS: REG ER ORD. PHYSICIAN: CHRISTAL JARA MD REASON: chest pain PROCEDURE: PORTABLE CHEST 1V EXAM: XR CHEST 1V 11/09/2021 8:33 PM CLINICAL INDICATION: Chest COMPARISON: Chest radiograph 09/13/[address] chest 09/13/2021 TECHNIQUE: AP upright view of the chest FINDINGS: The heart and mediastinum are normal. Lungs are well-expanded. No consolidation, pleural effusion, or pneumothorax. Pulmonary vascularity is normal. The thoracic skeleton is intact. IMPRESSION: No acute cardiopulmonary abnormality. Electronically signed by: Loan Sanchez MD (11/09/2021 9:12 PM) [id number] DICTATED and SIGNED BY: LOAN SANCHEZ MD DATE: 11/09/21 [id number] [facility] [address] [place] [address] IMAGING REPORT Signed PATIENT: MIC CANCHOLA I ACCOUNT: [id number] : 1970 LOCATION: ER AGE: 50 SEX: F EXAM STATUS: REG ER ORD. PHYSICIAN: CHRISTAL JARA MD REASON: dimer +, OMNI 350 80 ML IV PROCEDURE: CT ANGIOGRAPHY CHEST CT angiograms of the chest with contrast: Reason for examination: Positive d-dimer. Comparison is made to previous study dated 09/21/2021. Helical images were obtained through the chest with intravenous administration of 80 cc of Omnipaque 350 using PE protocol. 3-D MIPS reconstruction was performed in sagittal and coronal planes. Exposure: One or more of the following individualized dose reduction techniques were utilized for this examination: 1. Automated exposure control 2. Adjustment of the mA and/or kV according to patient size 3. Use of iterative reconstruction technique. No abnormality seen at the thyroid gland. The trachea and mainstem bronchi show no intraluminal lesions. No abnormality seen at the esophagus. A few small nonspecific lymph nodes are seen in the mediastinum. The thoracic aorta shows no aneurysmal dilatation or dissection. The heart size is normal with no pericardial effusion. No pulmonary embolus is evident. No infiltrates, pleural effusions or pneumothorax are seen. No acute bony abnormalities are seen in the thorax. No abnormalities of seen at the visualized portions of the liver, spleen, adrenal glands, pancreas or gallbladder. Bilateral breast prostheses are again seen. IMPRESSION: No evidence of pulmonary embolus. No gross infiltrates or pleural effusion. Electronically signed by: Gavino Luque MD (11/09/2021 10:28 PM) [facility] and SIGNED BY: GAVINO LUQUE MD DATE: 11/09/21 [id number] Course & Med Decision Making: Course & Med Decision Making Pertinent Labs and Imaging studies reviewed. (See chart for details) Patient 50-year-old female presents with 2 days of progressive exertional shortness of breath and chest pain. Tachycardic to 105 on arrival, BP stable. EKG not overtly ischemic. Troponin neg. However, has several risk factors for ACS. HEART score 5 so if alternative cause for symptoms is not identified she may require chest pain observational stay. Rapid COVID is negative. Dimer +, so CTA is pending for consideration of PE. CXR negative for ptx, pna, or parenchymal disease. 0932 CTA negative for PE. Patient will be admitted for further chest pain observation. [id number] Joy Disclaimer: Joy Disclaimer: This electronic medical record was generated, in whole or in part, using a voice recognition dictation system. Departure Departure Impression: Primary Impression: Chest pain Disposition: ADMITTED INPATIENT Admitting Physician: CHELSEA Jaramillo) Condition: STABLE Referrals: NO PCP (PCP) CHRISTAL JARA MD Nov 09, 2021 21:34
[2021-11-09] MEDS ORDERED: CONTRAST GIVEN. MC PRN (21:45)
[2021-11-09] MEDS ORDERED: IOHEXOL 300 MG/ML 100ML VIAL. IV ONE (22:00)
[2021-11-09] MEDS ORDERED: IOHEXOL 350 MG/ML 100 ML VIAL. IV ONE (22:00)
[2021-11-09] MEDS ORDERED: IV NORMAL SALINE 1000ML BAG 1,000 ML IV ONE (22:30)
--- NOTE | 2021-11-09 22:31 | RAD ---
CT angiograms of the chest with contrast: Reason for examination: Positive d-dimer. Comparison is made to previous study dated 09/21/2021. Helical images were obtained through the chest with intravenous administration of 80 cc of Omnipaque 350 using PE protocol. 3-D MIPS reconstruction was performed in sagittal and coronal planes. Exposure: One or more of the following individualized dose reduction techniques were utilized for thi s examination: 1. Automated exposure control 2. Adjustment of the mA and/or kV according to patient size 3. Use of iterative reconstruction technique. No abnormality seen at the thyroid gland. The trachea and mainstem bronchi show no intraluminal lesions. No abnormality seen at the esophagus. A few small nonspecific lymph nodes are seen in the mediastinum. The thoracic aorta shows no aneurysmal dilatation or dissection. The heart size is normal with no per icardial effusion. No pulmonary embolus is evident. No infiltrates, pleural effusions or pneumothorax are seen. No acute bony abnormalities are seen in the thorax. No abnormalities of seen at the visualized portions of the liver, spleen, adrenal glands, pancreas or gallbladder. Bilateral breast prostheses are again seen. IMPRESSION: No evidence of pulmonary embolus. No gross infiltrates or pleural effusion. Electronically signed by: Leah Hazel MD (11/09/2021 10:28 PM) [facility]
[2021-11-10] MEDS ORDERED: NITROGLYCERIN SUBLINGUAL 0.4 MG BOTTLE OF 25. SL PRN (07:30)
[2021-11-10] MEDS ORDERED: ACETAMINOPHEN 325 MG TABLET. PO PRN (07:30)
[2021-11-10] MEDS ORDERED: ONDANSETRON PF 4 MG/2 ML VIAL. IVP PRN (07:30)
[2021-11-10] MEDS ORDERED: hydrALAZINE 20 MG/ML VIAL. IVP PRN (07:30)
--- NOTE | 2021-11-10 07:30 | PDOC1 ---
History and Physical Date of Admission Date of Admission DATE: 11/10/21 TIME: 07:26 Identification/Chief Complaint Chief Complaint Chest pain Source Source: Patient History of Present Illness History of Present Illness Ms Faustin is a 50 year old female with history of HTN, HLD, obesity, tobacco abuse who presents with chest pain and shortness of breath with associated lightheadedness. She has had 3 days of symptoms. Started with substernal chest pain several hours after exerting herself. She was loading clothing into boxes for [employer] and initially ignored the pain. Over the next 2 days it became more of a twinge in his achy not sharp. Does not radiate. Improved with rest. She notes lightheadedness and dizziness shortness of breath. She notes she is more easily fatigued. She does not see a primary care physician. Today the pain has been present even at rest, but reliably gets worse with even minimal exertion such as walking. Associated with shortness of breath. States that she had subjective fever and chills, but denies cough, sore throat, congestion. Denies COVID or sick contacts. Denies lower extremity swelling or recent surgeries/immobilization. No recent travel EKG Sinus rhythm. Normal axis. Rate 105. Q deflection in lead III, without contiguous Q waves. No ST segment changes. WBC 10.9, Hb 15.2, platelets 397, NA 139, K3.6, BUN 12, CR 1, glucose 81, c alcium 8.3, LFTs within normal laboratory limits, albumin 3.2, high-sensitivity troponin is 6, D-dimer 0.77, rapid COVID-19 negative. Chest radiograph no acute abnormality. With tachycardia and elevated D-dimer she underwent a CTPA which was negative for pulmonary embolism. Admitted for further observation. Past Medical History Cardiovascular: HTN, Hyperlipidemia Past Surgical History Past Surgical History Right ankle, right jaw Past Surgical History: Hysterectomy Family History Family History: High Cholestrol, Hypertension Social History Smoke: 1 pack per day ALCOHOL: rare Drugs: None Current Problem List Problem List Problems Medical Problems: (1) Chest pain Status: Acute Current Medications Current Medications Current Medications Aspirin (Aspirin Chewable) 324 mg 1X ONCE PO Last administered on 11/09/21at 20:53; Start 11/09/21 at 20:30; Stop 11/09/21 at 20:39; Status DC Iohexol (Omnipaque 300 Mg/ml) 80 ml 1X ONCE IV ; Start 11/09/21 at 22:00; Stop 11/09/21 at 22:01; Status DC Info (CONTRAST GIVEN -- Rx MONITORING) 1 each PRN DAILY PRN MC SEE COMMENTS; Start 11/09/21 at 21:45; Stop 11/11/21 at 21:44 Iohexol (Omnipaque 350 Mg/ml) 80 ml 1X ONCE IV Last administered on 11/09/21at 21:51; Start 11/09/21 at 22:00; Stop 11/09/21 at 22:01; Status DC Sodium Chloride 1,000 ml @ 1,000 mls/hr 1X ONCE IV Last administered on 11/09/21at 23:42; Start 11/09/21 at 22:30; Stop 11/09/21 at 23:29; Status DC Active Scripts Active Hydrocodone-Apap 5-325 (Hydrocodone Bit/Acetaminophen) 1 Tab Tablet 1 Tab PO PRN Q6HRS PRN Augmentin 875-125 Tablet (Amoxicillin/Potassium Clav) 1 Each Tablet 1 Tab PO BID 10 Days Potassium Chloride (Potassium Chloride) 20 Meq Tablet.er 20 Meq PO DAILY Zithromax (Azithromycin) 250 Mg Tablet 1 Pkg PO UD Allergies Allergies: Coded Allergies: No Known Drug Allergies (Unverified , 09/28/21) ROS General: YES: Chills, Fatigue, Malaise; No: Night Sweats, Appetite, Other PSYCHOLOGICAL ROS: YES: Anxiety; No: Behavioral Disorder, Concentration difficultie, Decreased libido, Depression, Disorientation, Hallucinations, Hostility, Irritablity, Memory difficulties, Mood Swings, Obsessive thoughts, Physical abuse, Sexual abuse, Sleep disturbances, Suicidal ideation, Other Eyes: No Blurry vision, No Decreased vision, No Double vision, No Dry eyes, No Excessive tearing, No Eye Pain, No Itchy Eyes, No Loss of vision, No Photophobia, No Scotomata, No Uses contacts, No Uses glasses, No Other HEENT: YES: Heacaches; No: Visual Changes, Hearing change, Nasal congestion, Nasal discharge, Oral lesions, Sinus pain, Sore Throat, Epistaxis, Sneezing, Snoring, Tinnitus, Vertigo, Vocal changes, Other ALLERGY AND IMMUNOLOGY: No: Hives, Insect Bite Sensitivity, Itchy/Watery Eyes, Nasal Congestion, Post Nasal Drip, Seasonal Allergies, Other Hematological and Lymphatic: No: Bleeding Problems, Blood Clots, Blood Transfusions, Brusing, Night Sweats, Pallor, Swollen Lymph Nodes, Other ENDOCRINE: No: Breast Changes, Galactorrhea, Hair Pattern Changes, Hot Flashes, Malaise/lethargy, Mood Swings, Palpitations, Polydipsia/polyuria, Skin Changes, Temperature Intolerance, Unexpected Weight Changes, Other Breast: No New/Changing Breast Lumps, No Nipple changes, No Nipple discharge, No Other Respiratory: YES: Shortness of breath, SOB with excertion; No: Cough, Hemoptysis, Orthopnea, Pleuritic Pain, Sputum Changes, Stridor, Tachypnea, Wheezing, Other Cardiovascular: yes Chest Pain; No Palpitations, No Orthopnea, No Paroxysmal Noc. Dyspnea, No Edema, No Lt Headedness, No Other Gastrointestinal: No Nausea, No Vomiting, No Abdominal Pain, No Diarrhea, No Constipation, No Melena, No Hematochezia, No Other Genitourinary: No Dysuria, No Frequency, No Incontinence, No Hematuria, No Retention, No Discharge, No Urgency, No Pain, No Flank Pain, No Other, No , No , No , No , No , No , No Musculoskeletal: No Gait Disturbance, No Joint Pain, No Joint Stiffness, No Joint Swelling, No Muscle Pain, No Muscular Weakness, No Pain In:, No Swelling In:, No Other Neurological: No Behavorial Changes, No Bowel/Bladder ControlChng, No Confusion, No Dizziness, No Gait Disturbance, No Headaches, No Impaired Coord/balance, No Memory Loss, No Numbness/Tingling, No Seizures, No Speech Problems, No Tremors, No Visual Changes, No Weakness, No Other Skin: No Dry Skin, No Eczema, No Hair Changes, No Lumps, No Mole Changes, No Mottling, No Nail Changes, No Pruritus, No Rash, No Skin Lesion Changes, No Other, No Acne Physical Exam General: Alert, Oriented X3, Cooperative, mild distress HEENT: Atraumatic, PERRLA, EOMI, Mucous membr. moist/pink Lungs: Clear to auscultation, Normal air movement Heart: S1S2, RRR, no thrills, no rubs, no gallops, no murmurs Abdomen: Normal bowel sounds, Soft, No tenderness, No hepatosplenomegaly, No masses Rectal Exam: not examined Extremities: No clubbing, No cyanosis, No edema, Normal pulses, No tenderness/swelling Skin: No rashes, No breakdown, No significant lesion Neuro: Normal gait, Normal speech, Strength at 5/5 X4 ext, Normal tone, Sensation intact, Cranial nerves 3-12 NL, Reflexes 2+ Psych/Mental Status: Mental status NL, Mood NL Vitals Vitals Vital Signs Date Time Temp Pulse Resp B/P (MAP) Pulse Ox O2 Delivery O2 Flow Rate FiO2 11/10/21 03:30 93 16 102/69 (80) 93 Room Air 11/09/21 21:15 98.1 98.1 Labs Labs Laboratory Tests Test 11/09/21 20:37 11/09/21 20:56 11/09/21 23:40 White Blood Count 10.9 x10^3/uL (4.0-11.0) Red Blood Count 4.65 x10^6/uL (3.50-5.40) Hemoglobin 15.2 g/dL (12.0-15.5) Hematocrit 43.8 % (36.0-47.0) Mean Corpuscular Volume 94 fL (79-100) Mean Corpuscular Hemoglobin 33 pg (25-35) Mean Corpuscular Hemoglobin Concent 35 g/dL (31-37) Red Cell Distribution Width 13.7 % (11.5-14.5) Platelet Count 397 x10^3/uL (140-400) Neutrophils (%) (Auto) 58 % (31-73) Lymphocytes (%) (Auto) 30 % (24-48) Monocytes (%) (Auto) 7 % (0-9) Eosinophils (%) (Auto) 5 % (0-3) Basophils (%) (Auto) 1 % (0-3) Neutrophils # (Auto) 6.3 x10^3/uL (1.8-7.7) Lymphocytes # (Auto) 3.2 x10^3/uL (1.0-4.8) Monocytes # (Auto) 0.8 x10^3/uL (0.0-1.1) Eosinophils # (Auto) 0.5 x10^3/uL (0.0-0.7) Basophils # (Auto) 0.1 x10^3/uL (0.0-0.2) D-Dimer (Nyla) 0.77 ug/mlFEU (0.00-0.50) Sodium Level 139 mmol/L (136-145) Potassium Level 3.6 mmol/L (3.5-5.1) Chloride Level 102 mmol/L (98-107) Carbon Dioxide Level 29 mmol/L (21-32) Anion Gap 8 (6-14) Blood Urea Nitrogen 12 mg/dL (7-20) Creatinine 1.0 mg/dL (0.6-1.0) Estimated GFR (Cockcroft-Gault) 58.5 BUN/Creatinine Ratio 12 (6-20) Glucose Level 81 mg/dL (70-99) Calcium Level 8.3 mg/dL (8.5-10.1) Total Bilirubin 0.2 mg/dL (0.2-1.0) Aspartate Amino Transf (AST/SGOT) 15 U/L (15-37) Alanine Aminotransferase (ALT/SGPT) 31 U/L (14-59) Alkaline Phosphatase 72 U/L (46-116) Troponin I High Sensitivity 6 ng/L (4-50) 6 ng/L (4-50) Total Protein 6.8 g/dL (6.4-8.2) Albumin 3.2 g/dL (3.4-5.0) Albumin/Globulin Ratio 0.9 (1.0-1.7) SARS-CoV-2 Antigen (Rapid) Negative (NEGATIVE) Laboratory Tests Test 11/09/21 20:37 11/09/21 20:56 11/09/21 23:40 White Blood Count 10.9 x10^3/uL (4.0-11.0) Red Blood Count 4.65 x10^6/uL (3.50-5.40) Hemoglobin 15.2 g/dL (12.0-15.5) Hematocrit 43.8 % (36.0-47.0) Mean Corpuscular Volume 94 fL (79-100) Mean Corpuscular Hemoglobin 33 pg (25-35) Mean Corpuscular Hemoglobin Concent 35 g/dL (31-37) Red Cell Distribution Width 13.7 % (11.5-14.5) Platelet Count 397 x10^3/uL (140-400) Neutrophils (%) (Auto) 58 % (31-73) Lymphocytes (%) (Auto) 30 % (24-48) Monocytes (%) (Auto) 7 % (0-9) Eosinophils (%) (Auto) 5 % (0-3) Basophils (%) (Auto) 1 % (0-3) Neutrophils # (Auto) 6.3 x10^3/uL (1.8-7.7) Lymphocytes # (Auto) 3.2 x10^3/uL (1.0-4.8) Monocytes # (Auto) 0.8 x10^3/uL (0.0-1.1) Eosinophils # (Auto) 0.5 x10^3/uL (0.0-0.7) Basophils # (Auto) 0.1 x10^3/uL (0.0-0.2) D-Dimer (Nyla) 0.77 ug/mlFEU (0.00-0.50) Sodium Level 139 mmol/L (136-145) Potassium Level 3.6 mmol/L (3.5-5.1) Chloride Level 102 mmol/L (98-107) Carbon Dioxide Level 29 mmol/L (21-32) Anion Gap 8 (6-14) Blood Urea Nitrogen 12 mg/dL (7-20) Creatinine 1.0 mg/dL (0.6-1.0) Estimated GFR (Cockcroft-Gault) 58.5 BUN/Creatinine Ratio 12 (6-20) Glucose Level 81 mg/dL (70-99) Calcium Level 8.3 mg/dL (8.5-10.1) Total Bilirubin 0.2 mg/dL (0.2-1.0) Aspartate Amino Transf (AST/SGOT) 15 U/L (15-37) Alanine Aminotransferase (ALT/SGPT) 31 U/L (14-59) Alkaline Phosphatase 72 U/L (46-116) Troponin I High Sensitivity 6 ng/L (4-50) 6 ng/L (4-50) Total Protein 6.8 g/dL (6.4-8.2) Albumin 3.2 g/dL (3.4-5.0) Albumin/Globulin Ratio 0.9 (1.0-1.7) SARS-CoV-2 Antigen (Rapid) Negative (NEGATIVE) Images Images Radiograph CHEST 1V: FINDINGS: The heart and mediastinum are normal. Lungs are well-expanded. No consolidation, pleural effusion, or pneumothorax. Pulmonary vascularity is normal. The thoracic skeleton is intact. IMPRESSION: No acute cardiopulmonary abnormality. CT ANGIOGRAPHY CHEST: No abnormality seen at the thyroid gland. The trachea and mainstem bronchi show no intraluminal lesions. No abnormality seen at the esophagus. A few small nonspecific lymph nodes are seen in the mediastinum. The thoracic aorta shows no aneurysmal dilatation or dissection. The heart size is normal with no pericardial effusion. No pulmonary embolus is evident. No infiltrates, pleural effusions or pneumothorax are seen. No acute bony abnormalities are seen in the thorax. No abnormalities of seen at the visualized portions of the liver, spleen, adrenal glands, pancreas or gallbladder. Bilateral breast prostheses are again seen. IMPRESSION: No evidence of pulmonary embolus. No gross infiltrates or pleural effusion. VTE Prophylaxis Ordered VTE Prophylaxis Devices: No VTE Pharmacological Prophylaxi: Yes Assessment/Plan Assessment/Plan A/P: Chest pain -likely musculoskeletal costochondritis from exertion recently. Given her smoking and age hypertension hyperlipidemia as risk factors will repeat high-sensitivity troponin consult cardiology maintain telemetry. H2 sherice for possible GERD. Shortness of breath -given the widespread pandemic would not be surprised if she is positive for COVID-19. Not hypoxic. No audible wheezes. Advised quit smoking and work on weight loss. Dizziness -negative for vertigo on examination. No focal neurologic deficits and no clear indication for head imaging. Will check TSH and follow-up on COVID-19 PCR results. HTN - does not see a physician, previously told she had HTN and HLD. Given primary care resources Smoker - counseled extensively on cessation, offered nicotine replacement therapy FEN - Regular diet PPX - lovenox FULL CODE Dispo - observation for chest pain Justifications for Admission Other Justification GLADYS BRIONES MD Nov 10, 2021 07:30
[2021-11-10] MEDS ORDERED: ASPIRIN 325 MG TABLET PO SCH (08:00)
[2021-11-10] MEDS ORDERED: NICOTINE 21MG PATCH. TD PRN (09:00)
[2021-11-10] MEDS ORDERED: FAMOTIDINE 20 MG TABLET. PO SCH (09:15)
--- NOTE | 2021-11-10 09:15 | PDOC2 ---
SURINDER HALL LOCATOR SPECIALIST 11/10/21 0915: CARDIAC CONSULT DATE OF CONSULT Date of Consult DATE: 11/10/21 TIME: 09:09 REASON FOR CONSULT Reason for Consult: Chest pain REFERRING PHYSICIAN Referring Physician: Dr. Mills SOURCE Source: Chart review, Patient HISTORY OF PRESENT ILLNESS HISTORY OF PRESENT ILLNESS This is a 50 yo female who presented secondary to chest pain and shortness of breath. Patient reports she was cleaning our her closet and was loading clothing in a bag to be donated and began having fullness feeling in her central chest. Was short of breath. Sat down and took a break, symptoms resolved. Began loading clothes again and starting to have fullness in her central chest again. [place] slightly dizzy with ambulation. No diaphoresis, palpitations, or nausea/vomiting. Chest seemed to be tender upon palpation and was worse with deep breathing. Reports pain in similar to pervious when she had pneumonia. Does reports subjective fevers with diaphoresis over the last day to two. PAST MEDICAL HISTORY Cardiovascular: HTN, Hyperlipidemia PAST SURGICAL HISTORY Past Surgical History: Hysterectomy, Other (ast Surgical History) FAMILY HISTORY Family History: High Cholestrol, Hypertension SOCIAL HISTORY Smoke: 1 pack per day ALCOHOL: rare Drugs: None CURRENT MEDICATIONS CURRENT MEDICATIONS Current Medications Medications (Trade) Dose Ordered Sig/Genna Route PRN Reason Start Time Stop Time Status Last Admin Dose Admin Aspirin (Aspirin Chewable) 324 mg 1X ONCE PO 11/09/21 20:30 11/09/21 20:39 DC 11/09/21 20:53 Iohexol (Omnipaque 350 Mg/ml) 80 ml 1X ONCE IV 11/09/21 22:00 11/09/21 22:01 DC 11/09/21 21:51 Sodium Chloride 1,000 ml @ 1,000 mls/hr 1X ONCE IV 11/09/21 22:30 11/09/21 23:29 DC 11/09/21 23:42 Aspirin (Christa Aspirin) 325 mg DAILYWBKFT PO 11/10/21 08:00 11/10/21 08:42 ALLERGIES ALLERGIES: Coded Allergies: No Known Drug Allergies (Unverified , 09/28/21) ROS Review of System 14 point ROS conducted with pertinent positives noted above in HPI PHYSICAL EXAM General: Alert, Oriented X3, Cooperative HEENT: Atraumatic Lungs: Other (diminished bases) Heart: Regular rate Abdomen: Soft, No tenderness Skin: No breakdown, No significant lesion Neuro: Normal speech, Sensation intact Psych/Mental Status: Mental status NL, Mood NL MUSCULOSKELETAL: Osteoarthritic changes both hands VITALS/I&O VITALS/I&O: Vital Signs Date Time Temp Pulse Resp B/P (MAP) Pulse Ox O2 Delivery O2 Flow Rate FiO2 11/10/21 03:30 93 16 102/69 (80) 93 Room Air 11/09/21 21:15 98.1 98.1 LABS Lab: Laboratory Tests Test 11/09/21 20:37 11/09/21 20:56 11/09/21 23:40 White Blood Count 10.9 x10^3/uL (4.0-11.0) Red Blood Count 4.65 x10^6/uL (3.50-5.40) Hemoglobin 15.2 g/dL (12.0-15.5) Hematocrit 43.8 % (36.0-47.0) Mean Corpuscular Volume 94 fL (79-100) Mean Corpuscular Hemoglobin 33 pg (25-35) Mean Corpuscular Hemoglobin Concent 35 g/dL (31-37) Red Cell Distribution Width 13.7 % (11.5-14.5) Platelet Count 397 x10^3/uL (140-400) Neutrophils (%) (Auto) 58 % (31-73) Lymphocytes (%) (Auto) 30 % (24-48) Monocytes (%) (Auto) 7 % (0-9) Eosinophils (%) (Auto) 5 % (0-3) H Basophils (%) (Auto) 1 % (0-3) Neutrophils # (Auto) 6.3 x10^3/uL (1.8-7.7) Lymphocytes # (Auto) 3.2 x10^3/uL (1.0-4.8) Monocytes # (Auto) 0.8 x10^3/uL (0.0-1.1) Eosinophils # (Auto) 0.5 x10^3/uL (0.0-0.7) Basophils # (Auto) 0.1 x10^3/uL (0.0-0.2) D-Dimer (Nyla) 0.77 ug/mlFEU (0.00-0.50) H Sodium Level 139 mmol/L (136-145) Potassium Level 3.6 mmol/L (3.5-5.1) Chloride Level 102 mmol/L (98-107) Carbon Dioxide Level 29 mmol/L (21-32) Anion Gap 8 (6-14) Blood Urea Nitrogen 12 mg/dL (7-20) Creatinine 1.0 mg/dL (0.6-1.0) Estimated GFR (Cockcroft-Gault) 58.5 BUN/Creatinine Ratio 12 (6-20) Glucose Level 81 mg/dL (70-99) Calcium Level 8.3 mg/dL (8.5-10.1) L Total Bilirubin 0.2 mg/dL (0.2-1.0) Aspartate Amino Transferase (AST) 15 U/L (15-37) Alanine Aminotransferase (ALT) 31 U/L (14-59) Alkaline Phosphatase 72 U/L (46-116) Troponin I High Sensitivity 6 ng/L (4-50) 6 ng/L (4-50) Total Protein 6.8 g/dL (6.4-8.2) Albumin 3.2 g/dL (3.4-5.0) L Albumin/Globulin Ratio 0.9 (1.0-1.7) L SARS-CoV-2 Antigen (Rapid) Negative (NEGATIVE) Laboratory Tests 11/09/21 20:37 Laboratory Tests 11/09/21 20:37 ASSESSMENT/PLAN ASSESSMENT/PLAN 1. Chest pain, atypical. AMI ruled out 2. Hypertension; controlled 3. Hyperlipidemia 4. Elevated d-dimer; CTA negative for PE 5. Tobaccoism; discussed/encouraged cessation Recommendations ASA Lipids Echo to assess LV systolic function Consider outpatient ischemic evaluation Supportive care MONICA MAR MD 11/11/21 1128: CARDIAC CONSULT ASSESSMENT/PLAN ASSESSMENT/PLAN Late entry for 11/10/2021 Patient seen and examined. Agree with above nurse practitioner note. Cardiac evaluation is unremarkable plan for outpatient ischemic evaluation SURINDER HALL APRN Nov 10, 2021 09:15 MONICA MAR MD Nov 11, 2021 11:28
[2021-11-10 09:51] LABS: CHOLESTEROL/HDL RATIO 5.4
--- NOTE | 2021-11-10 10:19 | EKG ---
[facility] [address] [place] [address] Test Date: 2021-11-09 Test Time: 20:26:56 Pat Name: MIC CANCHOLA Department: Room: ED HOLD 8 Gender: F [employer]: : 1970 Requested By: CHRISTAL JARA Order Number: [id number] Reading MD: Colby Pino MD Measurements Intervals [place] Rate: 105 P: 10 WV: 146 QRS: 13 QRSD: 88 T: 30 QT: 332 QTc: 443 Interpretive Statements SINUS TACHYCARDIA Electronically Signed On 11-17-2021 16:06:40 STORE PERSON by Colby Pino MD
[2021-11-10 13:30] VITALS: BP 123/6
--- NOTE | 2021-11-10 16:34 | CARD ---
MR#: [id number] Date of Study: 11/10/2021 Ordering Physician: SURINDER HALL, Referring Physician: SURINDER HALL, Tech: Elisha Jianjavier, [facility] APPROVED REPORT EXAM: Two-dimensional and M-mode echocardiogram with Doppler and color Doppler. Other Information Quality : AverageHR: 85bpm INDICATION Dyspnea Chest Pain RISK FACTORS Hypertension Hyperlipidemia Smoking 2D DIMENSIONS Left Atrium(2D)3.4 (1.6-4.0cm)IVSd0.9 (0.7-1.1cm) Aortic Root(2D)3.0 (2.0-3.7cm)LVDd4.8 (3.9-5.9cm) LVOT Diameter2.1 (1.8-2.4cm)PWd1.2 (0.7-1.1cm) LVDs3.2 (2.5-4.0cm)FS (%) 33.2 % SV65.7 ml Aortic Valve AoV Peak Roland.136.1cm/sAoV VTI27.9cm AO Peak GR.7.4mmHgLVOT VTI 21.88cm AO Mean GR.5mmHg Mitral Valve MV E Kqrtainb65.9cm/sMV E Peak Gr.2mmHg MV DECEL [id number] A Puprxrbm69.5cm/s MV E Mean Gr.1mmHgE/A Ratio1.2 TDI Lateral E' P. V9.07cm/sMedial E' P. V6.24cm/s E/Lateral E'8.4E/Medial E'12.2 Tricuspid Valve TR P. [id number]/sRAP [id number] TR Peak Gr.[id number] Pulmonary Vein S1 Eyozcpaw68.6cm/sS2 Wcnhgbqn93.47cm/s D2 Egesoscx90.5cm/sPVa [id number] LEFT VENTRICLE The left ventricle is normal size. There is borderline to mild concentric left ventricular hypertroph y. The left ventricular systolic function is normal and the ejection fraction is within normal range. The Ejection Fraction is 55-60%. Septal motion consistent with a possible conduction abnormality. Tr ansmitral Doppler flow pattern is Grade II-pseudonormal filling dynamics. RIGHT VENTRICLE The right ventricle is normal size. There is normal right ventricular wall thickness. The right ventr icular systolic function is normal. ATRIA The left atrium size is normal. The right atrium size is normal. The interatrial septum is intact wit h no evidence for an atrial septal defect or patent foramen ovale as noted on 2-D or Doppler imaging. AORTIC VALVE The aortic valve is normal in structure and function. Doppler and Color Flow revealed trace aortic re gurgitation. There is no significant aortic valvular stenosis. Calculated aortic valve area is 2.68 c m2 with maximum pressure gradient of 8 mmHg and mean pressure gradient of 5 mmHg. MITRAL VALVE The mitral valve is normal in structure and function. There is no evidence of mitral valve prolapse. There is no mitral valve stenosis. Doppler and Color-flow revealed trace mitral regurgitation. TRICUSPID VALVE The tricuspid valve is normal in structure and function. Doppler and Color Flow revealed trace tricus pid regurgitation with an estimated PAP of 29 mmHg. There is no tricuspid valve stenosis. PULMONIC VALVE The pulmonary valve is normal in structure and function. Doppler and Color Flow revealed trace pulmon ic valvular regurgitation. GREAT VESSELS The aortic root is normal in size. The ascending aorta is normal in size. The IVC is normal in size a nd collapses >50% with inspiration. PERICARDIAL EFFUSION There is no evidence of significant pericardial effusion. Critical Notification Critical Value: No <Conclusion> The left ventricle is normal size. The left ventricular systolic function is normal and the ejection fraction is within normal range. The Ejection Fraction is 55-60%. There is borderline to mild concentric left ventricular hypertrophy. Doppler and Color Flow revealed trace aortic regurgitation. There is no significant aortic valvular stenosis. Doppler and Color-flow revealed trace mitral regurgitation. Doppler and Color Flow revealed trace tricuspid regurgitation with an estimated PAP of 29 mmHg. Signed by : Demetrio Gonzalez MD Electronically Approved : 11/10/2021 16:33:59
[2021-11-10] MEDS ORDERED: ASPI325T8 PO (17:58)
[2021-11-10] MEDS ORDERED: FAMO20TA5 PO (17:58)
--- NOTE | 2021-11-10 18:06 | PDOC3 ---
Discharge Summary Visit Information Date of Admission: Nov 09, 2021 Date of Discharge: Nov 10, 2021 Admitting Diagnosis: Chest pain Final Diagnosis Problems Medical Problems: (1) Chest pain Status: Acute Brief Hospital Course Allergies Allergies Coded Allergies Type Severity Reaction Last Updated Verified No Known Drug Allergies 09/28/21 No Vital Signs Vital Signs Date Time Temp Pulse Resp B/P (MAP) Pulse Ox O2 Delivery O2 Flow Rate FiO2 11/10/21 17:30 86 18 93 Room Air 11/10/21 13:30 123/6 (45) 11/09/21 21:15 98.1 98.1 Lab Results Laboratory Tests Test 11/09/21 20:37 11/09/21 20:56 11/09/21 23:40 11/10/21 08:40 White Blood Count 10.9 x10^3/uL (4.0-11.0) Red Blood Count 4.65 x10^6/uL (3.50-5.40) Hemoglobin 15.2 g/dL (12.0-15.5) Hematocrit 43.8 % (36.0-47.0) Mean Corpuscular Volume 94 fL (79-100) Mean Corpuscular Hemoglobin 33 pg (25-35) Mean Corpuscular Hemoglobin Concent 35 g/dL (31-37) Red Cell Distribution Width 13.7 % (11.5-14.5) Platelet Count 397 x10^3/uL (140-400) Neutrophils (%) (Auto) 58 % (31-73) Lymphocytes (%) (Auto) 30 % (24-48) Monocytes (%) (Auto) 7 % (0-9) Eosinophils (%) (Auto) 5 % (0-3) Basophils (%) (Auto) 1 % (0-3) Neutrophils # (Auto) 6.3 x10^3/uL (1.8-7.7) Lymphocytes # (Auto) 3.2 x10^3/uL (1.0-4.8) Monocytes # (Auto) 0.8 x10^3/uL (0.0-1.1) Eosinophils # (Auto) 0.5 x10^3/uL (0.0-0.7) Basophils # (Auto) 0.1 x10^3/uL (0.0-0.2) D-Dimer (Nyla) 0.77 ug/mlFEU (0.00-0.50) Sodium Level 139 mmol/L (136-145) Potassium Level 3.6 mmol/L (3.5-5.1) Chloride Level 102 mmol/L (98-107) Carbon Dioxide Level 29 mmol/L (21-32) Anion Gap 8 (6-14) Blood Urea Nitrogen 12 mg/dL (7-20) Creatinine 1.0 mg/dL (0.6-1.0) Estimated GFR (Cockcroft-Gault) 58.5 BUN/Creatinine Ratio 12 (6-20) Glucose Level 81 mg/dL (70-99) Calcium Level 8.3 mg/dL (8.5-10.1) Total Bilirubin 0.2 mg/dL (0.2-1.0) Aspartate Amino Transf (AST/SGOT) 15 U/L (15-37) Alanine Aminotransferase (ALT/SGPT) 31 U/L (14-59) Alkaline Phosphatase 72 U/L (46-116) Troponin I High Sensitivity 6 ng/L (4-50) 6 ng/L (4-50) 4 ng/L (4-50) Total Protein 6.8 g/dL (6.4-8.2) Albumin 3.2 g/dL (3.4-5.0) Albumin/Globulin Ratio 0.9 (1.0-1.7) SARS-CoV-2 RNA (HAIDER) Negative (Negative) SARS-CoV-2 Antigen (Rapid) Negative (NEGATIVE) Triglycerides Level 250 mg/dL (0-150) Cholesterol Level 158 mg/dL (0-200) LDL Cholesterol, Calculated 79 mg/dL (0-100) VLDL Cholesterol, Calculated 50 mg/dL (0-40) Non-HDL Cholesterol Calculated 129 mg/dL (0-129) HDL Cholesterol 29 mg/dL (40-60) Cholesterol/HDL Ratio 5.4 Thyroid Stimulating Hormone (TSH) 0.263 uIU/mL (0.358-3.74) Laboratory Tests Test 11/09/21 20:37 11/09/21 20:56 11/09/21 23:40 11/10/21 08:40 White Blood Count 10.9 x10^3/uL (4.0-11.0) Red Blood Count 4.65 x10^6/uL (3.50-5.40) Hemoglobin 15.2 g/dL (12.0-15.5) Hematocrit 43.8 % (36.0-47.0) Mean Corpuscular Volume 94 fL (79-100) Mean Corpuscular Hemoglobin 33 pg (25-35) Mean Corpuscular Hemoglobin Concent 35 g/dL (31-37) Red Cell Distribution Width 13.7 % (11.5-14.5) Platelet Count 397 x10^3/uL (140-400) Neutrophils (%) (Auto) 58 % (31-73) Lymphocytes (%) (Auto) 30 % (24-48) Monocytes (%) (Auto) 7 % (0-9) Eosinophils (%) (Auto) 5 % (0-3) Basophils (%) (Auto) 1 % (0-3) Neutrophils # (Auto) 6.3 x10^3/uL (1.8-7.7) Lymphocytes # (Auto) 3.2 x10^3/uL (1.0-4.8) Monocytes # (Auto) 0.8 x10^3/uL (0.0-1.1) Eosinophils # (Auto) 0.5 x10^3/uL (0.0-0.7) Basophils # (Auto) 0.1 x10^3/uL (0.0-0.2) D-Dimer (Nyla) 0.77 ug/mlFEU (0.00-0.50) Sodium Level 139 mmol/L (136-145) Potassium Level 3.6 mmol/L (3.5-5.1) Chloride Level 102 mmol/L (98-107) Carbon Dioxide Level 29 mmol/L (21-32) Anion Gap 8 (6-14) Blood Urea Nitrogen 12 mg/dL (7-20) Creatinine 1.0 mg/dL (0.6-1.0) Estimated GFR (Cockcroft-Gault) 58.5 BUN/Creatinine Ratio 12 (6-20) Glucose Level 81 mg/dL (70-99) Calcium Level 8.3 mg/dL (8.5-10.1) Total Bilirubin 0.2 mg/dL (0.2-1.0) Aspartate Amino Transf (AST/SGOT) 15 U/L (15-37) Alanine Aminotransferase (ALT/SGPT) 31 U/L (14-59) Alkaline Phosphatase 72 U/L (46-116) Troponin I High Sensitivity 6 ng/L (4-50) 6 ng/L (4-50) 4 ng/L (4-50) Total Protein 6.8 g/dL (6.4-8.2) Albumin 3.2 g/dL (3.4-5.0) Albumin/Globulin Ratio 0.9 (1.0-1.7) SARS-CoV-2 RNA (HAIDER) Negative (Negative) SARS-CoV-2 Antigen (Rapid) Negative (NEGATIVE) Triglycerides Level 250 mg/dL (0-150) Cholesterol Level 158 mg/dL (0-200) LDL Cholesterol, Calculated 79 mg/dL (0-100) VLDL Cholesterol, Calculated 50 mg/dL (0-40) Non-HDL Cholesterol Calculated 129 mg/dL (0-129) HDL Cholesterol 29 mg/dL (40-60) Cholesterol/HDL Ratio 5.4 Thyroid Stimulating Hormone (TSH) 0.263 uIU/mL (0.358-3.74) Brief Hospital Course Ms Faustin is a 50 year old female with history of HTN, HLD, obesity, tobacco abuse who presents with chest pain and shortness of breath with associated lightheadedness. She has had 3 days of symptoms. Started with substernal chest pain several hours after exerting herself. She was loading clothing into boxes for [employer] and initially ignored the pain. Over the next 2 days it became more of a twinge in his achy not sharp. Does not radiate. Improved with rest. She notes lightheadedness and dizziness shortness of breath. She notes she is more easily fatigued. She does not see a primary care physician. Today the pain has been present even at rest, but reliably gets worse with even minimal exertion such as walking. Associated with shortness of breath. States that she had subjective fever and chills, but denies cough, sore throat, congestion. Denies COVID or sick contacts. Denies lower extremity swelling or recent surgeries/immobilization. No recent travel EKG Sinus rhythm. Normal axis. Rate 105. Q deflection in lead III, without contiguous Q waves. No ST segment changes. WBC 10.9, Hb 15.2, platelets 397, NA 139, K3.6, BUN 12, CR 1, glucose 81, calc ium 8.3, LFTs within normal laboratory limits, albumin 3.2, high-sensitivity troponin is 6, D-dimer 0.77, rapid COVID-19 negative. Chest radiograph no acute abnormality. With tachycardia and elevated D-dimer she underwent a CTPA which was negative for pulmonary embolism. Admitted for further observation. Repeat troponin within normal laboratory limits. Telemetry reviewed with no significant abnormalities. TSH was 0.263 however free T4 was 0.4 within normal limits. Triglycerides 250, LDL 79, HDL 29. Counseled extensively on smoking cessation and given primary care resources to continue to work-up her dizziness and shortness of breath. Pulmonary embolism and myocardial infarction essentially ruled out. Seen by cardiology consultation with echocardiogram which was essentially normal. COVID 19 returned negative by PCR. Repeat physical exam: Vital signs at time of discharge temp 98.1 F pulse 86 bpm respirations 18/min blood pressure 123/68, O2 saturations 93% on room air General: Alert, Oriented X3, Cooperative, mild distress HEENT: Atraumatic, PERRLA, EOMI, Mucous membr. moist/pink Lungs: Clear to auscultation, Normal air movement Heart: S1S2, RRR, no thrills, no rubs, no gallops, no murmurs Abdomen: Normal bowel sounds, Soft, No tenderness, No hepatosplenomegaly, No masses Rectal Exam: not examined Extremities: No clubbing, No cyanosis, No edema, Normal pulses, No tenderness/swelling Skin: No rashes, No breakdown, No significant lesion Neuro: Normal gait, Normal speech, Strength at 5/5 X4 ext, Normal tone, Sensation intact, Cranial nerves 3-12 NL, Reflexes 2+ Psych/Mental Status: Mental status NL, Mood NL Chest pain -likely musculoskeletal costochondritis from exertion recently. H2 sherice for possible GERD. Shortness of breath - Not hypoxic. No audible wheezes. Advised quit smoking and work on weight loss. Dizziness -negative for vertigo on examination. No focal neurologic deficits and no clear indication for head imaging. HTN - does not see a physician, previously told she had HTN and HLD. Given primary care resources Smoker - counseled extensively on cessation, offered nicotine replacement therapy Echocardiogram: LEFT VENTRICLE The left ventricle is normal size. There is borderline to mild concentric left ventricular hypertrophy. The left ventricular systolic function is normal and th e ejection fraction is within normal range. The Ejection Fraction is 55-60%. Septal motion consistent with a possible conduction abnormality. Transmitral Doppler flow pattern is Grade II-pseudonormal filling dynamics. RIGHT VENTRICLE The right ventricle is normal size. There is normal right ventricular wall thickness. The right ventricular systolic function is normal. ATRIA The left atrium size is normal. The right atrium size is normal. The interatrial septum is intact with no evidence for an atrial septal defect or patent foramen ovale as noted on 2-D or Doppler imaging. AORTIC VALVE The aortic valve is normal in structure and function. Doppler and Color Flow revealed trace aortic regurgitation. There is no significant aortic valvular stenosis. Calculated aortic valve area is 2.68 cm2 with maximum pressure gradient of 8 mmHg and mean pressure gradient of 5 mmHg. MITRAL VALVE The mitral valve is normal in structure and function. There is no evidence of mitral valve prolapse. There is no mitral valve stenosis. Doppler and Color-flow revealed trace mitral regurgitation. TRICUSPID VALVE The tricuspid valve is normal in structure and function. Doppler and Color Flow revealed trace tricuspid regurgitation with an estimated PAP of 29 mmHg. There is no tricuspid valve stenosis. PULMONIC VALVE The pulmonary valve is normal in structure and function. Doppler and Color Flow revealed trace pulmonic valvular regurgitation. GREAT VESSELS The aortic root is normal in size. The ascending aorta is normal in size. The IVC is normal in size and collapses >50% with inspiration. PERICARDIAL EFFUSION There is no evidence of significant pericardial effusion. Critical Notification Critical Value: No <Conclusion> The left ventricle is normal size. The left ventricular systolic function is normal and the ejection fraction is within normal range. The Ejection Fraction is 55-60%. There is borderline to mild concentric left ventricular hypertrophy. Doppler and Color Flow revealed trace aortic regurgitation. There is no significant aortic valvular stenosis. Doppler and Color-flow revealed trace mitral regurgitation. Doppler and Color Flow revealed trace tricuspid regurgitation with an estimated PAP of 29 mmHg. 123 minutes spent on same day admit and d/c Discharge Information Condition at Discharge: Stable Follow Up: Weeks (1) Disposition/Orders: D/C to Home Scheduled Aspirin (Aspirin) 325 Mg Tablet, 325 MG PO [id number] for ACS for 30 Days, #30 Ref 5 Prescribed by: GLADYS BRIONES MD on 11/10/21 6896 Famotidine (Famotidine) 20 Mg Tablet, 20 MG PO BID for GERD for 30 Days, #60 Ref 5 Prescribed by: GLADYS BRIONES MD on 11/10/21 1758 Discontinued Medications Amoxicillin/Potassium Clav (Augmentin 875-125 Tablet) 1 Each Tablet, 1 TAB PO BID for 10 Days, #20 Ref 0 Prescribed by: XIANG BOWIE APRN on 09/28/21 1628 Azithromycin (Zithromax) 250 Mg Tablet, 1 PKG PO UD, #6 Prescribed by: MEHNAZ MARCIAL D.O. on 09/17/21 2101 Hydrocodone Bit/Acetaminophen (Hydrocodone-Apap 5-325 ) 1 Tab Tablet, 1 TAB PO PRN Q6HRS PRN for PAIN, #15 Ref 0 Prescribed by: XIANG BOWIE APRN on 09/28/21 1629 Potassium Chloride (Potassium Chloride ) 20 Meq Tablet.er, 20 MEQ PO DAILY for SUPPLEMENT, #10 Prescribed by: MEHNAZ MARCIAL D.O. on 09/17/212101 Justicifation of Admission Dx: Justifications for Admission: Justification of Admission Dx: GLADYS Harvey MD Nov 10, 2021 18:06
== END 2021-11-10 17:40 | disposition home or self-care (01) ==
LOC: ER 20:10 → ED HOLD 23:18
PROVIDERS: ADMIT Internal Medicine; ATTEND Internal Medicine
DX: R07.89 Other chest pain (principal); Z20.822 Contact with and (suspected) exposure to COVID-19; I10 Essential (primary) hypertension; E78.5 Hyperlipidemia, unspecified; E66.9 Obesity, unspecified; E78.00 Pure hypercholesterolemia, unspecified; R42 Dizziness and giddiness; R06.02 Shortness of breath; R77.8 Other specified abnormalities of plasma proteins; F17.210 Nicotine dependence, cigarettes, uncomplicated; Z79.899 Other long term (current) drug therapy; Z98.890 Other specified postprocedural states; Z90.710 Acquired absence of both cervix and uterus; Z79.82 Long term (current) use of aspirin; Z68.31 Body mass index [BMI] 31.0-31.9, adult
CPT/HCPCS: 36415; 71045; 71275; 80053; 80061; 84439; 84443; 84480; 84484; 85025; 85379; 87426; 93005; 93306; 96360; 99285; G0378; J7030; Q9967; U0003; U0005; G0379; C8929